=== PATIENT | male | born 1970 | race Caucasian/White ===

== ENCOUNTER 2018-05-03 18:26 | Emergency (ER) | payer OTHER ==
[~2018-05-03] VITALS: Ht 182.9 cm; Wt 110.0 kg
[2018-05-03] MEDS ORDERED: LISINOPRIL20 M1 PO (18:48)
[2018-05-03] MEDS ORDERED: SERTRALINE HCL100 MG PO (18:49)
[2018-05-03 19:55] VITALS: BP 123/76
== END 2018-05-03 19:55 | disposition home or self-care (01) | DRG 605 ==
LOC: ED 18:26
DX: S50.01XA Contusion of right elbow, initial encounter (principal); F17.290 Nicotine dependence, other tobacco product, uncomplicated; W22.8XXA Striking against or struck by other objects, initial encounter; Y93.89 Activity, other specified; Y92.009 Unspecified place in unspecified non-institutional (private) residence as the place of occurrence of the external cause; Y99.0 Civilian activity done for income or pay

== ENCOUNTER 2018-11-15 01:40 | Emergency (ER) | payer OTHER ==
[~2018-11-15] VITALS: Ht 182.9 cm; Wt 109.1 kg
[~2018-11-15 01:40] MED LIST: LISINOPRIL20 M1 PO; SERTRALINE HCL100 MG PO
[2018-11-15 02:14] LABS: HEMATOCRIT 38.9 % (39.0-50.0); HEMOGLOBIN 14.1 g/dl (14.0-18.0); IMMATURE GRANULOCYTES 0.7 % (0.0-5.0); MEAN CELL VOLUME 86.1 fL CALC (80.0-100.0); MEAN CORPUSCULAR HGB 31.2 pG CALC (26.0-32.0); MEAN CORPUSCULAR HGB CONC 36.2 g/L CALC (32.0-36.0); NEUT# 5.43 thou/uL (1.82-7.42); RED BLOOD COUNT 4.52 mill/uL (4.70-6.10); RED CELL DISTRI WIDTH 11.7 % (11.5-15.5)
[2018-11-15 02:38] LABS: ALBUMIN 4.2 g/dL (3.2-5.0); ALKALINE PHOSPHATASE 99 u/l (38-126); AMYLASE 54 u/l (30-110); ANION GAP 13 (6-22 (CALC)); BILIRUBIN, TOTAL 0.4 mg/dL (0.0-1.4); BUN 24 mg/dL (9-20); BUN/CREATININE RATIO 27 (12-20 (CALC)); CARBON DIOXIDE 25 mmol/l (22-30); CHLORIDE 104 mmol/l (95-108); CREATININE 0.9 mg/dL (0.7-1.3); GFR > 60 ML/MIN (>=60 (CALC)); GFR FOR AFR.AMER. > 60 ML/MIN (>=60 (CALC)); LIPASE 70 u/l (23-300); POTASSIUM 3.9 mmol/l (3.5-5.1); SGOT/AST 17 u/l (17-59); SODIUM 139 mmol/l (137-146); TOTAL PROTEIN 7.3 g/dL (6.3-8.2)
[2018-11-15 03:26] LABS: URINE BILIRUBIN - DIPSTICK NEGATIVE (NEGATIVE); URINE BLOOD DIPSTICK TRACE-INTACT (NEGATIVE); URINE COLOR YELLOW; URINE GLUCOSE - DIPSTICK NEGATIVE (NEGATIVE); URINE KETONE NEGATIVE (NEGATIVE); URINE LEUK ESTERASE NEGATIVE (NEGATIVE); URINE NITRITE - DIPSTICK NEGATIVE (Negative); URINE PROTEIN - DIPSTICK NEGATIVE (NEG-TRACE); URINE UROBILINOGEN - DIPSTICK 0.2 E.U./dL (0.2)
[2018-11-15 03:30] VITALS: BP 150/92
== END 2018-11-15 03:40 | disposition home or self-care (01) | DRG 694 ==
LOC: ED 01:40
PROVIDERS: Emergency Medicine
DX: N20.0 Calculus of kidney (principal); Z87.442 Personal history of urinary calculi; R11.2 Nausea with vomiting, unspecified; R19.7 Diarrhea, unspecified